=== PATIENT | female | born 1940 | race Native Hawaiian/Other Pacific Islander ===

== ENCOUNTER 2022-09-29 09:01 | Outpatient (CLI) | payer OTHER | END 2022-09-29 19:06 | disposition home or self-care (01) | LOC: RAD 09:01 | PROVIDERS: ATTEND Nurse Practitioner Family | DX: M81.0 Age-related osteoporosis without current pathological fracture (principal) ==

== ENCOUNTER 2022-12-23 08:28 | Outpatient (CLI) | payer OTHER ==
[~2022-12-23] VITALS: Ht 160 cm; Wt 62.1 kg
== END 2022-12-23 19:15 | disposition home or self-care (01) ==
LOC: NM 08:28
PROVIDERS: ATTEND Internal Medicine Cardiovascular Disease
DX: R06.09 Other forms of dyspnea (principal)
CPT/HCPCS: A9500; J2785